=== PATIENT | female | born 1940 | race Caucasian/White ===

== ENCOUNTER → 2018-05-06 10:03 | Outpatient (CLI) | payer MEDICARE, SELFPAY ==
--- NOTE | 2018-05-06 | DI.MRI.S_ITS ---
PROCEDURE: MR SHOULDER LT WO CON INDICATIONS: SHOULDER PAIN TECHNIQUE: Noncontrast oblique coronal T2 fast spin echo with fat saturation, oblique sagittal T1 spin echo and T2 fast spin echo with fat saturation, axial T1 spin echo and T2 fast spin echo with fat saturation through the shoulder. COMPARISON: None. FINDINGS: Image quality: Diagnostic. Rotator cuff: The supraspinatus and infraspinatus tendons are completely torn and retracted by approximately 3.4 cm to the level of the glenoid. This tear measures at least 4 cm in transverse dimension. There is moderate to high grade articular surface partial thickness tearing of the distal subscapularis tendon with corresponding tendinopathy. The teres minor tendon is intact. There is mild to moderate atrophy identified involving the supraspinatus, infraspinatus, and subscapularis muscles. No significant atrophy of the teres minor muscle is evident. Bones and bursae: There is no acute fracture or dislocation. There are moderate degenerative changes of the glenohumeral and acromial clavicular joints. There is a large joint effusion acute indicates that the subacromial subdeltoid bursa. Capsule and soft tissues: Evaluation of the labrum and the glenohumeral ligaments is difficult without intra-articular contrast. Heterogeneity of the labrum and probably will represents a degenerative labral tear, best appreciated anteriorly. No definite acute glenohumeral ligament tears are evident. Normal biceps tendon is not identified within the bicipital groove, which is felt to be completely torn and retracted. IMPRESSION: 1. 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 2. A moderate to high grade articular surface partial thickness tear just distal subscapularis tendon. 3. Moderate degenerative changes of the glenohumeral and acromioclavicular joints. 4. A large glenohumeral joint effusion is noted that communicates with the subacromial subdeltoid bursa. 5. Full-thickness tear of the long head of the biceps tendon. 6. Degenerative tearing of the labrum is best appreciated anteriorly. Dictated by: Torrey Gonzalez M.D. on 05/06/2018 at 11:42 Approved by: Torrey Gonzalez M.D. on 05/06/2018 at 11:55
== END ==
PROVIDERS: PCP Orthopaedic Surgery; Visit Provider Family Medicine
DX: M75.122 Complete rotator cuff tear or rupture of left shoulder, not specified as traumatic (principal); S46.112A Strain of muscle, fascia and tendon of long head of biceps, left arm, initial encounter; S43.492A Other sprain of left shoulder joint, initial encounter; M25.512 Pain in left shoulder; M19.012 Primary osteoarthritis, left shoulder; M25.412 Effusion, left shoulder
CPT/HCPCS: 73221